=== PATIENT | male | born 1975 | race African-American/Black ===

== ENCOUNTER 2017-07-02 22:48 | Emergency (ER) | payer BC, OTHER ==
[~2017-07-02] VITALS: Ht 180.3 cm; Wt 79.0 kg
[2017-07-03] MEDS ORDERED: SODIUM CHLORIDE 0.9% 1,000 ML IV ONE (01:02)
[2017-07-03 01:12] LABS: BASOPHILS % 0.8 % (0.0-2.0); EOSINOPHILS % 1.5 % (0.0-5.0); HEMATOCRIT. 42.1 % (42.0-52.0); LYMPHOCYTES % 30.1 % (20.0-50.0); MEAN CORPUSCULAR HEMOGLOBIN 26.9 pg (28.0-32.0); MEAN CORPUSCULAR VOLUME 80.9 fL (80.0-94.0); NEUTROPHILS % 56.6 % (40.0-76.0); PLATELET 207 x1000/uL (130-400); RED CELL DISTRIBUTION WIDTH 14.6 % (11.6-14.6)
[2017-07-03] MEDS ORDERED: CEFAZOLIN 1000MG PREMIX 50 ML IV ONE (01:15)
[2017-07-03 01:21] LABS: CHLORIDE 107 mEq/L (98-107); INR 1.1; PARTIAL THROMBOPLASTIN TIME 26.2 sec (23.4-31.0); PROTHROMBIN TIME 11.6 sec (9.4-11.6)
[2017-07-03 01:31] LABS: CARBON DIOXIDE 31 mEq/L (21-32)
[2017-07-03] MEDS ORDERED: ONDANSETRON HCL 4MG/2ML VIAL IV ONE (04:15)
[2017-07-03 09:11] VITALS: BP 152/82
== END 2017-07-03 09:26 | disposition short-term general hospital (02) ==
LOC: ER 23:06
DX: T85.838A Hemorrhage due to other internal prosthetic devices, implants and grafts, initial encounter (principal); Y92.89 Other specified places as the place of occurrence of the external cause; Z98.890 Other specified postprocedural states
CPT/HCPCS: 36415; 80053; 85025; 85610; 85730; 96365; 96375; 99285; J0690; J2405; J7030; X7700; Z7610